=== PATIENT | female | born 1970 | race Caucasian/White ===

== ENCOUNTER 2017-06-10 10:37 | Emergency (ER) | payer MEDICAID ==
[~2017-06-10] VITALS: Ht 167.6 cm; Wt 77.1 kg
[~2017-06-10 10:37] MED LIST: ALPRAZOLAM PO; CYMBALTA60 MG PO; DESYREL50 MG PO; ENDOCET 10-3251 EACH PO; FLEXERIL PO; IBUPROFEN 600600 M1 PO; MIRALAX255 GM PO; NEURONTIN600 MG PO; OXYCODONE HCL15 MG PO; OXYCONTIN15 MG PO; PRILOSEC 20 MG20 MG PO; ROXICODONE15 M1 PO; TUMS CHEWA500 MG/11 PO
[2017-06-10] MEDS ORDERED: MS CONTIN15 MG PO (10:48)
[2017-06-10] MEDS ORDERED: PHENERGAN 25 MG25 M1 PO (10:49)
[2017-06-10] MEDS ORDERED: LYRICA 75 MG CA75 MG PO (10:50)
[2017-06-10] MEDS ORDERED: TRAZODONE HCL100 MG PO (10:50)
[2017-06-10] MEDS ORDERED: CONSTIPATION MED (10:50)
[2017-06-10 10:56] LABS: ABSOLUTE EOSINOPHILS 0.2 thou/uL (0.0-0.7); ABSOLUTE LYMPHOCYTES 1.7 thou/uL (0.8-5.3); ABSOLUTE MONOCYTES 0.6 thou/uL (0.0-1.2); ABSOLUTE NEUTROPHILS 3.2 thou/uL (1.6-8.1); BASOPHILS 0.5 %; EOSINOPHILS 2.7 %; HEMATOCRIT 37.9 % (37.0-47.0); LYMPHOCYTES 29.8 %; MCH 31.9 pg (26.0-34.0); MCHC 34.2 g/dL (28.0-37.0); MCV 93.2 fL (80.0-100.0); MONOCYTES 10.2 %; MPV 9.9 fl. (7.2-11.1); NUCLEATED RBCS 0 /100WBC; PLATELET COUNT* 209 thou/uL (150-400); POLYS 56.8 %; RBC 4.07 mil/uL (4.20-5.00); RDW-CV 12.7 % (10.5-14.5); WBC 5.7 thou/uL (4.0-11.0)
[2017-06-10 11:04] LABS: ANION GAP 9 mmol/L (7-16); BUN 18 mg/dL (7-18); CALCIUM 8.7 mg/dL (8.5-10.1); CHLORIDE 103 mmol/L (98-107); CO2 28 mmol/L (21-32); CREATININE 0.9 mg/dL (0.6-1.3); GLUCOSE 107 mg/dL (70-99); POTASSIUM 3.6 mmol/L (3.5-5.1); SODIUM 140 mmol/L (136-145)
[2017-06-10 11:08] LABS: APTT 25.1 Seconds (25.0-31.3); PROTIME 9.9 Seconds (9.20-11.50)
[2017-06-10 11:15] LABS: ALBUMIN 3.9 g/dL (3.4-5.0); ALKALINE PHOSPHATASE 54 U/L (46-116); LIPASE 133 U/L (73-393); MAGNESIUM 1.9 mg/dL (1.8-2.4); SGOT 26 U/L (15-37); SGPT 32 U/L (30-65); TOTAL BILIRUBIN 0.3 mg/dL (<0.1-1.0); TOTAL PROTEIN 7.2 g/dL (6.4-8.2); TROPONIN-I LEVEL <0.06 ng/mL (<0.06)
[2017-06-10 11:40] LABS: CK-MB MASS 6.1 ng/mL (<0.5-3.6); NT-PRO BRAIN NAT PEPTIDE 38 pg/mL (<300)
[2017-06-10 11:53] VITALS: BP 114/71
--- NOTE | 2017-06-10 16:26 | EKG ---
[place] [address] ELECTROCARDIOGRAM REPORT Name: SERJIOCHANEL VIMAL Room: [facility]#: [id number] Admission: 06/10/17 Attend Phys: Discharge: 06/10/17 Date of : 66 Report #: [id number] THIS REPORT FOR: //name// [facility] ED Test Date: 2017-06-10 Test Time: 10:41:54 Pat Name: CHANEL BASSETT Department: Room: Gender: [employer]: : 1970 Requested By: Calin Navarrete Order Number: [id number] MD: Galdino Hood Measurements Intervals [place] Rate: 104 P: 49 KS: 154 QRS: 48 QRSD: 95 T: 51 QT: 340 QTc: 448 Interpretive Statements Sinus tachycardia No previous ECG available for comparison Electronically Signed On 06-10-2017 16:26:02 ASSORTER LAUNDRY by Galdino Hood [email or web address] <ELECTRONICALLY SIGNED> By: Galdino Hood MD, [facility] 06/10/17 1626 1041 1041 Galdino Hood MD, FACC /EPI
== END 2017-06-10 11:54 | disposition home or self-care (01) ==
LOC: M.ERS 10:37
PROVIDERS: Family Medicine
DX: R07.9 Chest pain, unspecified (principal); Z90.710 Acquired absence of both cervix and uterus

== ENCOUNTER 2018-06-20 11:54 | Emergency (ER) | payer OTHER, MEDICAID ==
[~2018-06-20] VITALS: Ht 167.6 cm; Wt 68.0 kg
[~2018-06-20 11:54] MED LIST changes: +CONSTIPATION MED; +LYRICA 75 MG CA75 MG PO; +MS CONTIN15 MG PO; +PHENERGAN 25 MG25 M1 PO; +TRAZODONE HCL100 MG PO
[2018-06-20] MEDS ORDERED: AMITRIPTYLINE100 MG PO (12:09)
[2018-06-20] MEDS ORDERED: FLEXERIL PO (13:14)
[2018-06-20] MEDS ORDERED: NABUMETONE 750750 M1 PO (13:14)
[2018-06-20 13:31] VITALS: BP 109/62
== END 2018-06-20 13:32 | disposition home or self-care (01) ==
LOC: M.ERS 11:54
DX: S16.1XXA Strain of muscle, fascia and tendon at neck level, initial encounter (principal); S50.11XA Contusion of right forearm, initial encounter; S40.011A Contusion of right shoulder, initial encounter; S80.11XA Contusion of right lower leg, initial encounter; Z90.710 Acquired absence of both cervix and uterus; Z98.890 Other specified postprocedural states; V49.09XA Driver injured in collision with other motor vehicles in nontraffic accident, initial encounter; Y93.89 Activity, other specified; Y92.89 Other specified places as the place of occurrence of the external cause; Y99.8 Other external cause status